=== PATIENT | female | born 1985 | race Caucasian/White ===

== ENCOUNTER 2017-12-17 17:11 | Outpatient (CLI) | END 2017-12-17 21:40 | disposition home or self-care (01) ==

== ENCOUNTER 2017-12-18 18:17 | Outpatient (CLI) | END 2017-12-18 19:44 | disposition home or self-care (01) ==

== ENCOUNTER 2018-01-16 07:15 | Inpatient (IN) | END 2018-01-18 18:35 | disposition home or self-care (01) | DRG 775 ==